=== PATIENT | male | born 1940 | race Caucasian/White ===

== ENCOUNTER → 2019-03-25 | Outpatient (CLI) | payer OTHER ==
[~2019-03-25] VITALS: Ht 180.3 cm; Wt 83.5 kg
[~2019-03-25] MED LIST: ASPI81TA27 PO; CALC-437 OR; CHL4PW PO; EZET10TA6 PO; LOSA-46 PO
== END | disposition home or self-care (01) ==
LOC: CATH 09:15 → EDSTATUS 03-29 11:16
PROVIDERS: ATTEND Internal Medicine
DX: I73.9 Peripheral vascular disease, unspecified (principal); I10 Essential (primary) hypertension
CPT/HCPCS: 93005